=== PATIENT | male | born 1955 | race Caucasian/White ===

== ENCOUNTER 2020-11-01 15:00 | Inpatient (IN) | payer MEDICARE, MEDICAID ==
[~2020-11-01] VITALS: Ht 165.1 cm; Wt 75.6 kg
[~2020-11-01 15:00] MED LIST: BACLOFEN10 MG PO; CEFPROZIL500 MG PO; CYMBALTA30 MG PO; DICLOFENAC SODI75 MG PO; GLUCOPHAGE XR500 MG PO; HYDROCHLOROTHIA25 MG PO; LIPITOR10 MG; LO-DOSE ASPIRIN81 M1 PO; MELADOX3 MG PO; METOPROLOL SUCC50 MG PO; MOBIC15 MG PO; OXYCODONE HCL5 MG PO; PRASUGREL HCL10 MG PO; SENNA LAX8.6 MG PO; XARELTO10 MG PO
--- OUTSIDE RECORDS SUMMARY | 2020-11-01 15:02 | XMS ---
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 Randall has no Care Guidelines for this patient. Rachael VISIT COUNT (12 MO.) 1 TEVIN Andrea TOTAL 1 NOTE: Visits indicate total known visits. ED/UCC VISIT TRACKING (12 MO.) 11/01/2020 15:00 TEVIN Monge OR TYPE: Emergency COMPLAINT: - SOB, ACHING, COUGH INPATIENT VISIT TRACKING (12 MO.) No inpatient visits to display in this time frame [email or web address]
--- NOTE | 2020-11-01 20:30 | NUR ---
PT TO ROOM 116 FROM ED VIA STRETCHER. ALERT AND ORIENTED. ABLE TO TRANSFER SELF TO BED. VS WNL. PT DOES REPORT SOB WITH ACTIVITY. SpO2 88-91% ON RA. 2L/NC PLACED. AFEBRILE. EVENING SNACK AND WATER PROVIDED. PT DENIES QUESTIONS OR CONCERNS. PT ORIENTED TO ROOM AND NURSE CALL LIGHT. CALL LIGHT LEFT IN REACH.
--- NOTE | 2020-11-01 22:00 | NUR ---
PT RESTING IN BED WITH EYES CLOSED ON RIGHT SIDE. RESPIRATIONS EVEN. SpO2 94% ON 2L/NC. HR 60'S.
--- NOTE | 2020-11-01 22:13 | EKG ---
[facility] [address] [facility] [address] [place] [address] Signed Normal sinus rhythm Inferior infarct , age undetermined Abnormal ECG When compared with ECG of 15-DEC-2017 20:06, premature atrial complexes are no longer present Inferior infarct is now present ST no longer depressed in Anterior leads T wave inversion no longer evident in Anterior leads Confirmed by RICHIE CARDENAS MD ([id number]) on 11/01/2020 10:10:22 PM Electronically Signed By: RICHIE CARDENAS MD 11/01/20 2213 PATIENT NAME: GABRIELLE TRIVEDI JULIAN Electrocardiogram DATE OF : 53 PHYSICIAN: RICHIE CARDENAS MD REPORT #: [id number] REPORT IS CONFIDENTIAL AND NOT TO BE RELEASED WITHOUT AUTHORIZATION
--- NOTE | 2020-11-01 23:50 | NUR ---
IN ROOM TO ADMINISTER SCHEDULED MEDICATIONS. PT DENIES PAIN OR NAUSEA. REPORTS HAVING LOOSE BM. DENIES SOB. REPORTS HE IS FEELING MUCH IMPROVED SINCE ADMISSION. PT REPORTS HE IS RESTING WELL. EXTRA BLANKETS AND FRESH WATER PROVIDED. NO FURTHER NEEDS. CALL LIGHT IN REACH.
--- NOTE | 2020-11-02 02:59 | NUR ---
PT UP TO BR INDEPENDENTLY. 2L/NC IN PLACE. SpO2 92-95%. HR 60'S. BACK TO BED, RAMÍREZ WELL.
--- NOTE | 2020-11-02 06:43 | NUR ---
VS AND I&O COMPLETE. PT DENIES PAIN OR NAUSEA. DENIES SOB. RESPIRATIONS EVEN. SpO2 98% ON 2L/NC. OXYGEN TITRATED TO 1L. MENU AND ORDERING INSTRUCTIONS PROVIDED FOR BREAKFAST. PT DENIES FURTHER NEEDS. CALL LIGHT IN REACH.
--- NOTE | 2020-11-02 07:42 | NUR ---
REPORT RECEIVED. PT IN BED. 1L NC IN PLACE. TELE 3 ON. SPO2 AT 96% HR 56.
--- NOTE | 2020-11-02 10:00 | NUR ---
IN FOR ASSESSMENT. PT SLEEPING BUT WAKENS EASILY TO NURSE ENTERING ROOM. PT IS SSOX3. 2L NC IN PLACE. LUNGS WIHT CRACKLES IN BASES. PT DENIES SOB/PAIN. HEART SOUNDS IRREGULAR. BOWEL TONES ACTIVE. PT ATE 100% OF BREAKFAST. CALL LIGHT IN REACH.
[2020-11-02] MEDS ORDERED: ATORVASTATIN CA40 MG PO (10:08)
[2020-11-02] MEDS ORDERED: LOSARTAN POTASS25 MG PO (10:09)
[2020-11-02] MEDS ORDERED: DULOXETINE HCL60 MG PO (10:09)
[2020-11-02] MEDS ORDERED: GABAPENTIN100 MG PO (10:09)
--- NOTE | 2020-11-02 11:30 | NUR ---
Pt lives in a 1 story home with 1 step in [place]. He lives with his who has also been ill. 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 Pt complains of severe fatigue. Plans on dc to home when medically able to dc and he and will isolate together. Friends and family will assist with shopping and errands. If he requires 02 on dc he sabrina felton use [facility].
--- NOTE | 2020-11-02 13:07 | NUR ---
MED REC COMPLETE
--- NOTE | 2020-11-02 13:23 | NUR ---
ROUNDED ON PT. INSULINE ADMINSTERED. PT UP TO BATHROOM FOR BM. LUNCH AT BEDSIDE. PT DENIES NEEDS. CALL LIGHT IN REACH.
--- NOTE | 2020-11-02 14:20 | NUR ---
PT WAS IN BED. THIS MACHINE WIPER WENT IN TO GET PT'S VITAL SIGNS AND I&OS. PT REQUESTED MORE ICE WATER. CALLL LIGHT IS WITHIN REACH. NO FURTHER NEEDS AT THIS TIME.
--- NOTE | 2020-11-02 17:15 | NUR ---
roudned on pt. dinner ordered. blood sugar taken. pt denies pain or needs. call light in reach.
--- NOTE | 2020-11-02 17:43 | NUR ---
THIS AUTOMOBILE MECHANIC APPRENTICE WENT TO GET PT'S I&OS. PT WAS IN BED. PT HAD NOT URINATED SINCE ABOUT 1430. KAZ WHITMORE WAS NOTIFIED. CALL LIGHT IS WITHIN REACH. NO FURTHER NEEDS AT THIS TIME.
--- NOTE | 2020-11-02 19:34 | NUR ---
SHIFT REPORT RECEIVED FROM FROM HAIM MCCURDY. PT RESTING IN BED. NC @ 2L, CPOX 95%. CALL LIGHT IN REACH.
--- NOTE | 2020-11-02 20:44 | NUR ---
PATIENT IS AND OS AND VITALS CHARTED. PATIENT PROVIDED WITH FRESH ICE WATER, URINAL EMPTIED, ROOM TIDIED, PATIENT IS USING SPIROMETER. CALL LIGHT LEFT WITHIN REACH NO OTHER IMMEDIATE NEEDS AT THIS TIME.
--- NOTE | 2020-11-02 21:03 | NUR ---
ASSESSMENT, VS AND I&O COMPLETED. GCS 15, A&O X4. LUNGS HAVE CRACKLES IN ALL LOBES. ABD SOFT, NONTENDER, BOWEL TONES ACTIVE. HEART TONES DISTANT. CMS INTACT. IV WNL, CDI, FLUSHED WELL. SCHEDULED MEDS PROVIDED. IC EWATER PROVIDED. NO OTHER NEEDS. CALL LIGHT IN REACH.
--- NOTE | 2020-11-02 23:23 | NUR ---
PT RESTING IN BED, EYES CLOSED. SPO2 92% ON 2L NC. CALL LIGHT IN REACH.
--- NOTE | 2020-11-03 01:45 | NUR ---
PT RESTING IN BED, EYES CLOSED. SPO2 95% ON 2L NC. CALL LIGHT IN REACH.
--- NOTE | 2020-11-03 03:27 | NUR ---
PT RESTING IN BED. SPO2 92% ON 2L NC. CALL LIGHT IN REACH.
--- NOTE | 2020-11-03 05:00 | NUR ---
ASSESSMENT, VS AND I&O COMPLTED. LABS DRAWN AND SENT. LUNGS CLEAR IN UPPER LOBES, CRACKLES IN LOWER LOBES. HEART TONES REGULAR. CMS INTANCT. SPO2 91% ON 2L NC. IV WNL. ICE WATER PROVIDED. NO OTHER NEEDS. CALL LIGHT IN REACH.
--- NOTE | 2020-11-03 07:09 | NUR ---
REPORT RECEIVED FROM AKZ KUMARI. PT RESTING IN BED ON LEFT SIDE. OXYGEN SATURATIONS OF 90-92% ON 2L O2 BY NC. BED RAILS UP. CALL LIGHT WITHIN REACH. PT ALLOWED TO REST AT THIS TIME.
--- NOTE | 2020-11-03 08:21 | NUR ---
SPO2 READING 86% ON MONITOR. THIS NURSE TO BEDSIDE TO ASSESS PT. NARES PROB TRIED TO VERIFY EQUIPMENT IS ACCURATE. SPO2 W/ NO CHANGE BETWEEN EQUIPMENT. PT REPORTS HE JUST CAME BACK FROM BATHROOM. TITRATED O2 TO 4L NC. PT RECOVERED TO LOW 90'S THEN INCREASED TO 96%. TITRATED BACK DOWN TO 3L NC. SPO2 STAYING BETWEEN 89-93%. BLOOD SUGAR OBTAIN WHILE AT BEDSIDE. BLOOD SUGAR IS 191. PRIMARY NURSE UPDATED.
--- NOTE | 2020-11-03 08:50 | NUR ---
MORNING ASSESSMENT AND MEDICAITON DUE. PT RESTING IN BED WITH HEAD OF BED ELEVATED TO 30 DEGREES. PT DENIES PAIN AND NAUSEA. LUNG SOUNDS CORSE AND DEMINSHED IN LOWER LOBES, CLEAR IN UPPER LOBES. PT REPORTS ONGOING COUGH WITH YELLOW TO RAMIRES SPUTUM PRODUCTION. PRN COUGH MEDICAITON GIVEN. SHALLOW BREATHS NOTED. PT DEMONSTRATES USE OF I.S. REACHIGN 2500ML X5. NO INCREASE IN COUGH NOTED WITH I.S. USE. MILD BRADYCARDIA NOTED, STILL WITHIN PARAMATERS FOR MORNING MEDICATIONS. SEE MAR FOR MEDICAITONS GIVEN. STAND BY ASSIST UP TO CHAIR. PT DROPS TO 88% OXYGEN SATURATIONS, O2 INCREASED TO 4L O2 BY NC WITH OXGYEN SATURATIONS ABOVE 90%, 93% AT THIS TIME WHILE UP TO CHAIR. PT REPORTS ONGOING DIARRHEA WITH COVID. APROXIMATLY 3 EPISDOES OVER THE LAST DAY. PT UP TO CHAIR FOR BREAKFAST. NO ADDITIONAL REQUESTS OR COMPLAINTS. CALL LIGHT WITHIN REACH.
--- NOTE | 2020-11-03 10:00 | NUR ---
Pt sleeping. No change inplan for dc.
--- NOTE | 2020-11-03 10:15 | NUR ---
THIS RN TO ROOM TO CHECK ON PT. PT TALKING TO HIS ON THE PHONE. OXGYEN SATURATION 86-88% ON 4L O2 BY NC. IV INFUSION AND FLUSH COMPLETE. IV SALINE LOCKED, ALCOHOL CAP APPLIED. NO S/S OF PHLEBITIS NOTED. STAND BY ASSIST BACK TO BED. PT POSITIONED ON LEFT SIDE, SUPPORTED WITH PILLOWS. OXGYEN SATURATION REMAINS IN 80'S. O2 INCRASED TO 6L O2 BY NC, OXGYEN SATURATIONS CLIMB TO 90-92%. VITALS SIGNS OTHERWISE STABLE. PT REPORTS AN ADDITIONAL MEDIUM BROWN, LOOSE BOWEL MOVEMENT. THIS RN OFFERS TO UPDATE PTS , DENISSE, PT REPORTS NO UPDATE NEEDED FOR DENISSE AT THIS TIME. PT DENIES ADDITIONAL REQUESTS OR COMPLAINTS. CALL LIGHT WITHIN REACH.
--- NOTE | 2020-11-03 10:20 | NUR ---
OXGYEN SATURATION 96% ON 6L O2 BY NC. PT WEANED BACK TO 4L O2 BY NC. WITH OXYGEN SATURATIONS ABOVE 90%. PT REMAINS ON LEFT SIDE. CALL LIGHT WITHIN REACH. BED RAILS UP.
--- NOTE | 2020-11-03 12:05 | NUR ---
BLOOD SUGAR CHECK DUE. PT RESTING ON RIGHT SIDE. OXGYEN SATURATIONS REMAIN ABOVE 90% ON 4L O2 BY NC. PT DECLINES LUNCH. CRACKERS AND PEANUT BUTTER PROVIDED, INSULIN GIVEN. PT DENIES ADDITIIONAL REQUESTS OR COMPLAINTS AT THIS TIME. CALL LIGHT WITHIN REACH.
--- NOTE | 2020-11-03 14:01 | NUR ---
AFTERNOON ASSESSMENT DUE. PT RESTING ON BACK WATCHING TV. OXGYEN SATURATION 92-94% ON 4L O2 BY NC. LUNG SOUNDS UNCHANGED. OCCATIONAL PRODUCTIVE COUGH CONTINUES. PT DEMONSTRATES USE OF I.S. REACHING 2500ML X5. PT REPORTS ONGOING DIARRHEA WITH 2 EPISODES SO FAR THIS SHIFT. PT STATES "IT SEEMS TO BE A LITTLE MORE SOLID." POOR APPITITE CONTINUES. PT DENIES NEED FOR ADDITIONAL SNACKS OR LUNCH. PT DENES LOSS OF TASTE OR SMELL. STAND BY ASSIST UP TO RESTROOM. PT VOIDS 500ML CLEAR YELLOW URINE WITHOUT ISSUE. STAND BY ASSIST BACK TO BED. PT ENCOURAGED TO PRONE. PT ASSISTED INTO PRONING POSITION, REPORTS FEELING COMFROTABLE. OXGYEN SATURATIONS CLIMB TO 98% ON 4L O2 BY NC. O2 WEANED TO 2L O2 BY NC WITH OXGYEN SATURATIONS ABOVE 90%. PT DENIES ADDITIONAL REQUESTS OR COMPLAINTS. CALL LIGHT WITHIN REACH. BED RAILS UP.
--- NOTE | 2020-11-03 15:20 | NUR ---
THIS RN TO ROOM TO CHECK ON PT. PT RESTING ON LEFT SIDE WITH EYES CLOSED, OXGYEN SATURATION 94% ON 2L O2 BY NC. PT ALLOWED TO REST. CALL LIGHT WITHIN REACH. BED RAILS UP.
--- NOTE | 2020-11-03 16:28 | NUR ---
PT HERE FOR COVID RELATED PENUMONIA. PT UP TO CHAIR AND TO RESTROOM WITH STAND BY ASSIST. PT STEADY ON FEET BUT OXGYEN SATURATIONS DROP WITH ACTIVITY. PT ADVANCED TO 4L O2 BY NC WITH ACTIVITY AND WHILE UP TO CHAIR THIS SHIFT, WEANED TO 2L O2 BY NC WITH PRONING, TO MAINTAIN OXYGEN SATURATIONS ABOVE 90%. I.S. USE ENSURED, PT REACHING 2500ML. MINIMAL APPITITE FOR REGULAR DIET. BLOOD SUGAR CHECKS PERFORMED WITH SLINDING SCALE INSULIN. PT PARTICIPATING IN PRONING PROTOCOLS. CONTINIOUS PULSE OX IN PLACE TO MONITOR OXYGEN SAUTRATIONS. PT VOIDING QUANTITY SUFFICIENT. PT USES CALL LIGHT APPROPRIATLY.
--- NOTE | 2020-11-03 16:56 | NUR ---
BLOOD SUGAR DUE. PT RESTING ON RIGHT SIDE, OXGYEN SATURATIONS OF 89-92% ON 2L O2 BY NC. BLOOD SUGAR TAKEN, INSULIN GIVEN. PT ENCOURAGED TO GET UP TO CHAIR FOR DINNER, PT REFUSES STATING HE WANTS TO STAY IN BED. PT EATING DINNER IN BED WITH HEAD OF BED ELEVATED TO 35 DEGREES. OXGYEN INCREASED TO 4L O2 BY NC WHILE EATING AND WITH ACTIVITY OF SITTING UP. PT DENIES ADDITIONAL REQUESTS OR COMPLAINTS. CALL LIGHT WITHIN REACH. BED RAILS UP.
--- NOTE | 2020-11-03 18:02 | NUR ---
THIS RN TO ROOM TO CHECK ON PT. PT RESTING IN BED TALKING ON PHONE, HEAD OF BED ELEVATED TO 44 DEGREES. PT DENIES PAIN AND NAUSEA. OXGYEN SATURATION 90% ON 6L O2 BY NC WHILE SITTING UP. PT DENIES ADDITIONAL REQUESTS OR COMPLAINTS. REMAINS ON PHONE. CALL LIGHT WITHIN REACH. BED RAILS UP.
--- NOTE | 2020-11-03 19:39 | NUR ---
SHIFT REPORT RECEIVED FROM MAJO MCCURDY. PT CPOX 90% ON 2L NC. NO NEEDS AT THIS TIME. CALL LIGHT IN REACH.
--- NOTE | 2020-11-03 21:15 | NUR ---
IN TO GET VITALS, ICE WATER FILLED, URINAL EMPTIED, NO FURTHER NEEDS AT THIS TIME
--- NOTE | 2020-11-03 21:24 | NUR ---
ASSESSMENT COMPLETED. LUNGS CLEAR IN UPPER LOBES, CRACKLES IN LOWER LOBES. NC @ 2L, CPOX 94%. IV WNL, CDI, FLUSHED WELL. GENERALIZED PAIN 2/10, PRN PAIN MED PROVIDED. SCHEDULED MEDS PROVIDED. NO OTHER NEEDS. CALL LIGHT IN REACH.
--- NOTE | 2020-11-04 | NUR ---
PT RESTING IN BED ON LEFT SIDE. SPO2 98% ON 2L NC. CALL LIGHT IN REACH.
--- NOTE | 2020-11-04 02:00 | NUR ---
PT RESTING IN BED. SPO2 91% ON 2L NC. CALL LIGHT IN REACH.
--- NOTE | 2020-11-04 04:00 | NUR ---
PT RESTING IN BED. SPO2 92% ON 2L NC. CALL LIGHT IN REACH.
--- NOTE | 2020-11-04 05:20 | NUR ---
ASSESSMENT, VS AND I&O COMPLETED. LUNGS CLEAR IN UPPER LOBES WITH CRACKLES IN LOWER LOBES. IV DRESSING CHANGED. SPO2 93% ON 2L NC. NO OTHER NEEDS. CALL LIGHT IN REACH.
--- NOTE | 2020-11-04 06:07 | NUR ---
H&P and face sheet faxed to [facility] for advance notice pt may dc over the weekend and could potentially need 02 from their distance education teacheron call pharmacy technician.
--- NOTE | 2020-11-04 07:31 | NUR ---
REPORT RECEIVED FROM KAZ KUMARI. PT RESTING WITH EYES CLOSED ON LEFT SIDE. OXGYEN SATURATIONS OF 90% ON 2L O2 BY NC. PT ALLOWED TO REST. BED RAILS UP. CALL LIGHT WITHIN REACH.
--- NOTE | 2020-11-04 08:49 | NUR ---
MORNING ASSESSMENT AND MEDICATION DUE. PT RESTING IN BED ON BACK. OXGYEN SATURATION NOTED TO BE 84-86% ON 2L O2 BY NC. O2 INCREASED TO 6L O2 BY NC WITH LITTLE IMPROVMENT. HIGH FLOW NASAL CANULA PLACED AT 10L O2 WITH OXGYEN SATURATIONS CLIMBING TO 91%. LUNG SOUNDS CLEAR IN UPPER LOBES, CRACKELS NOTED IN BASES, FEWER CRACKELS THIS MORNING THAN YESTERDAY. PT DEMONSTRATES USE OF I.S. REACHING 2500ML/X5. PT DENIES PAIN AND NAUSEA. PT REPORTS STOOLS ARE "BECOMING MORE SOLID." NO BOWEL MOVEMENT YET THIS MORNING. STAND BY ASSIST UP TO CHAIR. PT EATING BREAKFAST. WEANED DOWN TO 8L O2 BY HIGH FLOW HUMIDIFIDED NC. PT DENIES ADDITIONAL REQUESTS OR COMPLAINTS. CALL LIGHT WIHTIN REACH. BED
--- NOTE | 2020-11-04 09:30 | NUR ---
PUMP ALARMING, INFUSION AND FLUSH COMPLETE. IV ASSESSED, WNL, NO S/S OF PHELBITIS NOTED. IV FLUSHED AND SALINE LOCKED PERPROTOCOL, ALCOHOL CAP APPLIED. STAND BY ASSIST BACK TO BED. PT IN PRONE POSITION PT WEANED TO 4L O2 BY NC WHILE PRONING WITH OXGYEN SATURATIONS ABOVE 90%. PT DENIES PAIN AND NAUSEA. NO ADDITIONAL REQUESTS OR COMPLAINTS. CALL LIGHT WITHIN REACH.
--- NOTE | 2020-11-04 10:40 | NUR ---
PT CALL LIGHT ON. PT REPORTS HE NEEDS ASSISTANCE WITH HIS OXYGEN TUBING AND USING THE RESTROOM. THIS RN TO ROOM. EXTENTION PLACED ON OXGYEN TUBING. PT NOTED TO BE 86% ON 6L O2 BY HIGH FLOW NC WHILE UP TO CHAIR. OXGYEN INCREASED TO 12L O2 BY NC FOR ACTIVITY WITH OXGYEN SATURATIONS MAINTAINING ABOVE 90%. PT DEMONSTRATES USE OF I.S. REACHING 2500X 3 WHICH INCREASES OXGYEN SATURATIONS UP TO 97% TEMPORARILLY. STAND BY ASSIST UP TO RESTROOM. PT VOIDS AND HAS BOWEL MOVEMENT, NOTES DIARRHEA CONTINUES. STAND BY ASSIST BACK TO BED. PT LYING ON LEFT SIDE. OXGYEN WEANED TO 4L O2 BY NC TO MAINTAIN OXGYEN SATURATIONS ABOVE 90%. LUNCH ORDER PLACED. NO ADDITIONAL REQEUSTS OR COMPLAINTS. CALL LIGHT WITHIN REACH.
--- NOTE | 2020-11-04 11:59 | NUR ---
LUNCH DELIVERED TO PT. PT RESTING ON LEFT SIDE, AWAKENS TO VOICE. BLOOD SUGAR TAKEN, SLIDING SCALE INSULIN GIVEN. PT ENCOARUGED TO GET UP TO CHAIR FOR LUNCH. PT DECLINES AND STATES HE WANTS TO STAY IN BED. BENIFITES OF TIME UP TO CHAIR DISCUSSED WITH PT. PT VERBALIZES UNDERSTANDING AND CONTINUES TO STATE HE WILL REMAIN IN BED. OXGYEN SATURATIONS 94-96% ON 4L O2 BY NC. PT WEANED TO 3L O2 BY NC TO MAINTAIN OXGYEN SATURATION S88-92%. PT EATING LUNCH. NO ADDITIONAL REQUESTS OR COMPLAINTS. CALL LIGHT WITHIN REACH.
--- NOTE | 2020-11-04 13:58 | NUR ---
AFTERNOON ASSESSMENT DUE. PT CALL LIGHT ON. PT STATES HE WOULD LIKE TO GET UP TO THE CHAIR AND TO WALK AROUND ROOM A LITTLE BIT. PT INDEPENDANT UP TO CHAIR. PT INCREASES HIS OWN OXGYEN TO 10L O2 BY NC WITH OXGYEN SATURATIONS 86-88%. THIS RN TO ROOM, OXGYEN INCREASED TO 12L O2 BY NC WITH STATURATIONS 88-93%. LUNGS. PT REPORTS 6/10 HEADACHE. TYELNOL GIVEN. LUNGS SOUNDS CLEAR THROUGHOUT ALTHOUGH DEMINISHED IN BASES. PT DEMONSTRATES USE OF I.S. REACHING 2500 X3. PT REPORTS APPITITE IS IMPROVING, WAS ABLE TO EAT 100% OF LUNCH AND IS EAGER TO ORDER DININER. DINNER ORDER PLACED. PT UP TO AMBULATE IN ROOM. OXGYEN SATURATIONS 88-92% ON 12L O2 BY NC. PT REPORTS IT "FEELS GOOD" TO WALK AND "STRETCH MY MUSCLES." PT UP TO SHOWER. IV COVERED. PT INDEPENDANT IN SHOWER, SHOWER CHAIR USED. PT DEMONSTRATES USE OF CALL LIGHT. CALL LIGHT WITHIN REACH.
--- NOTE | 2020-11-04 15:03 | NUR ---
PT FINISHED WITH SHOWER. CALL LIGHT ON. PT REPORTS "I FELT PRETTY GOOD IN THERE, I DIDN'T FEEL WINDED OR ANYTHING." PT UP TO CHAIR. CPOX IN PLACE, OXGYEN SATURATIONS 95-99% ON 14L O2 BY NC. PT REPORTS HE HAS HAD ISSUES WITH POOR CIRCULATION IN THE PAST AND THINGS THAT AFTER THE HOT SHOWER HIS CIRCLATION HAS IMPROVED. PT WEAND TO 4L O2 BY NC WHILE UP TO CHAIR. OXGYEN SATURATIONS MAINTAINING ABOVE 90% ON 4L O2 BY NC WHILE UP TO CHAIR. WARM BLANKET PROVIDED FOR PT. PT REPORTS HEADACHE HAS IMPROVED, NOW 03/30. NO ADDITIONAL REQUESTS OR COMPLAINTS. CALL LIGHT WITHIN REACH.
--- NOTE | 2020-11-04 16:07 | NUR ---
THIS RN TO ROOM TO CHECK ON PT. PT UP IN ROOM AND TO USE RESTROOM. OXYGEN SATURATIONS 90-96% ON 4L O2 BY NC. PT WEANED TO 2L O2 BY NC AND IS MAINTAINING OXYGEN SATURATIONS ABOVE 90%. PT REPORTS HEADACHE HAS RESOLVED. NO ADDITIONAL REQUESTS OR COMPLATINS. CALL LIGHT WITHIN REACH.
--- NOTE | 2020-11-04 16:30 | NUR ---
PT HERE FOR COVID RELATED PNEUMONIA. PT UP IN ROOM INDEPENDANTLY. INCREASED APPITITE THIS SHIFT FOR CONSISTANT CARB DIET. BLOOD SUGARS ELEVATED WITH CHECKS DURING MEAL TIMES, SLIDING SCALE INSULIN GIVEN. INCREASED OXGYEN NEEDS NOTED THIS MORNING, IMPROVED WITH WARMING HANDS/SHOWER AND IMPROVED CIRCULATION. PT WEANED TO 2L O2 BY NC THIS AFTERNOON AND IS MAINTAINING OXYGEN SATURATIONS ABOVE 90%. LUNG SOUNDS CLEAR. SHOWER THIS SHIFT, PT REPORTS GOOD ENERGY DURING SHOWER AND WAS ABLE TO TOLERATE ACTIVITY WELL. PT PARTICIPATING IN PRONING PROTOCOLS. I.S. USE ENSURED, PT REACHING 2500ML. PT VOIDING QUANITTY SUFFICIENT. PO INTAKE ENCORUAGED. PT USES CALL LIGHT AND MAKES NEEDS KNOWN.
--- NOTE | 2020-11-04 17:30 | NUR ---
DINNER DELIVERED TO PT. INSULIN GIVEN PER SLIDING SCALE. PT LYING ON BACK IN BED AND OXYGEN SATURATIONS NOTED TO BE 84-88%. OXGYEN INCREASED TO 4L O2 BY NC, PT ENCOURAGED TO LYE ON SIDE RATHER THAN BACK. PT ROLLS TO LEFT SIDE. OXGYEN SATURATIOSN INCREASE TO 90-93%. PT DENIES ADDITIONAL REQUESTS OR COMPLAINTS. CALL LIGHT WITHIN REACH. BED RAILS UP.
--- NOTE | 2020-11-04 18:41 | NUR ---
PTS OXYGEN SATURATIONS NOTED TO BED 82-88%. THIS RN TO ROOM. PT UP TO CHAIR, REPORTS HE TURNED HIS OXYGEN UP TO 6L O2 BY NC. OXGYEN INCRASED TO 10L. OXGYEN SATURATION COMPAIRED WITH EAR LOBE PROBE AND NOTED TO BE 88-94%. WARM BLANKET PROVIDED FOR PTS HAND. PT DENIES FEELINGS OF SHORTNESS OF BREATH. RR = 20-24 BPM. PT REMAINS UP TO CHAIR EATING DINNER. VITAL SIGNS OTHERWISE STABLE. PT REMAINS ON 10L O2 BY NC AT THIS TIME WITH OXGYEN SATURATIONS 88-92%. CALL KERLINE DELONG.
--- NOTE | 2020-11-04 20:05 | NUR ---
PATIENT RESTING QUIETLY ON HIS LEFT SIDE ON 10L/NC HIGH FLOW WITH SATS OF 95%. PATIENT DENIES THE NEEDS FOR ANY CARES AT THIS TIME. RESPIRATIONS ARE REGULAR AND EVEN AND CALL LIGHT IS IN REACH.
--- NOTE | 2020-11-04 22:10 | NUR ---
PATIENT 96% O2 SAT ON 10L/NC. PATIENT RESTING IN BED WITH NO RESPITORY DISTRESS. EVENING MEDS GIVEN WITH COUGH SYRUP, TESSALON LEANDRO, AND TYLENOL FOR RIGHT KNEE PAIN FROM AN OLD KNEE SURGERY. PATIENT VOIDED 300MLS AND BOTH WATER GLASSES ARE FULL OF NEW WATER. PATIENT ASSESSMENT COMPLETE AND CALL LIGHT IS WITHIN REACH. NO OTHER CARE NEEDS AT THIS TIME.
--- NOTE | 2020-11-04 23:55 | NUR ---
PATIENT RESTING QIETLY ON HIS LEFT SIDE, RESPIRATIONS REGULAR AND EVEN AND EYES CLOSED, CALL LIGHT IS IN REACH. PATIENT'S 02 SATS 94% ON 10L/NC HIGH FLOW.
--- NOTE | 2020-11-05 01:09 | NUR ---
PATIENT RESTING QUIETLY ON HIS RIGHT SIDE, RESPIRATIONS ARE REGULAR AND EVEN, EYES ARE CLOSED, AND PATIENT REMAINS ON 10L/NC WITH 02 SAT AT 95% AND HR=61 PER TELE. CALL LIGHT IS IN REACH.
--- NOTE | 2020-11-05 02:34 | NUR ---
PATIENT HAS TURNED ON TO HIS BACK, O2 SATS ARE 92% ON 10L/NC HIGH FLOW WITH HR=52 ON TELE. PATIENT HAS NO CURRENT CARE NEEDS AND CALL LIGHT IS IN REACH.
--- NOTE | 2020-11-05 03:45 | NUR ---
PATIENT HAS TURNED BACK TO HIS LEFT SIDE AND O2 SATS ARE 95% OB 10L/NC HIGH FLOW WITH A HR=50. PATIENT'S RESPIRATIONS ARE REGULAR AND EVEN, HIS EYES ARE CLOSED, AND HIS CALL LIGHT IS IN REACH. PATIENT HAS NO OTHER CARE NEEDS NOTED AT THIS TIME.
--- NOTE | 2020-11-05 05:35 | NUR ---
PATIENT INFORMED THIS RN THAT HE WAS ABLE TO GET SOME SLEEP LAST NIGHT. PATIENT HAS REMAINED ON 10L/NC MOST OF THE NIGHT HIS O2 SATS WOULD FLUCTUATE FROM 87%-97% DEPENDING ON WHAT POSITION HE IS LAYING IN. PATIENT IS VOIDING QUANTITY SUFFICIENT URINE AND REMAINS INDEPENDENT IN THE ROOM. PATIENT JUST NOW TIRATED DOWN TO 8L/NC WITH AN O2 SAT OF 92%. PATIENT HAS NO OTHER NEEDS AT THIS TIME AND WANTS TO GET SOME MORE SLEEP. CALL LIGHT IS IN REACH.
--- NOTE | 2020-11-05 07:39 | NUR ---
this rn received report from gary adrian. pt appears to be resting at this time and is on cpox.
--- NOTE | 2020-11-05 08:10 | NUR ---
this rn in pts room to give pt his morning meds. pt states that he is feeling okay this am and is having no concerns this am, pt denies sob or any distress. pt sating 87% on 8l while laying on his back. when this rn stepped out of pts room pt desated to 79% on 8l, colleen rt in pts room to turn up pts o2 to 10l, pt sating 89-92% on 10l. pt did not state that he had any distress or sob. this rn did provide pt with 650 mg of tylenol for chronic pain
--- NOTE | 2020-11-05 12:30 | NUR ---
this rn in pts room to give pt his afternoon meds. pt states that he is doing well and reports that he has had no sob so far today.
--- NOTE | 2020-11-05 14:00 | NUR ---
this rn to cek on pt due to low sats- 80's- % pt up to the restroom and getting back to bed at this time. pt titrating his own oxygen, pt reports that previous nurses taught him to titrate his oxygen when getting up to restroom- pt titrated up to 10l when moving and then back to 8l for back to bed. pt denies sob at this time
--- NOTE | 2020-11-05 14:30 | NUR ---
pts sats still low at this time (mid 80's), lucian rajan to ask pt for this rn to side prone due to pt supine in bed with head elevated 30 degrees.
--- NOTE | 2020-11-05 17:30 | NUR ---
this rn in pts room to get pts blood sugar. pt reports that he was able to prone on his stomach for an hour this afternoon. pt sitting up at this time. this rn noted that pts sats were 92-95% on 8l prior to waking pt up from prone position, this rn noted pts sats were mid to upper 80's when sitting up in bed.
--- NOTE | 2020-11-05 18:00 | NUR ---
this rn in pts room to give pt his insulin and dinner. pt reports that he did have bm this afternoon. pt denies any sob when he gets up and moves.
--- NOTE | 2020-11-05 19:30 | NUR ---
CALLED THE FLOOR TO LET THIS RN KNOW PATIENT NEEDS TO GET AN ARTERIAL BLOOD GAS AND A CHEST CT TO R/O PE. [facility] WAS CALLED AND IS HERE TO PERFORM BLOOD GAS. RADIOLOGY WAS CALLED AND THEY WILL BE HERE SHORTLY TO TAKE PATIENT TO CT.
--- NOTE | 2020-11-05 20:09 | NUR ---
VS COMPLETE AND PATIENT HEADED TO CT WITH RADIOLOGY. [facility] INFORMED PATIENT IN TRANSPORT. PATIENT ON 10L/NC IGH FLOW AT THIS TIME. MASK ON PATIENT FOR COVID PRECAUTIONS OVER HIS NC.
--- NOTE | 2020-11-05 20:30 | NUR ---
PATIET IS BACK FROM CT AND BACK IN BEED ON 10L/NC HIGH FLOW. O2 SATS 92%. PATIENT'S PULSE OX TELE BATTERY CHANGED. PATIENT IN NO DISTRESS. PATIENT HAS NO CURENT NEEDS AT THIS TIME. THIS RN WILL RETURN WITH EVENING MEDS. CALL LIGHT IS IN REACH AND ICE WATER WAS REFILLED.
--- NOTE | 2020-11-05 21:30 | NUR ---
PATIENT GIVEN HIS PM MEDICATIONS ALONG WITH COUGH SYRUP, A TESSALON LEANDRO, AND TYLENOL FOR MARVIN/RT KNEE PAIN 07/28. PATIENT REMAINS ON 10L/NC HIGH FLOW WITH A O2 SAT OF 92%. PATIENT'S IV FLUSHES WELL AND PATIENT ASKED BY THIS RN TO CALL SOON HE VOIDS HE IS DUE. PATIENT HAS NO OTHER CARE NEEDS AT THIS TIME. CALL LIGHT IS IN REACH.
--- NOTE | 2020-11-05 22:38 | NUR ---
PATIENT RESTING QUIETLY IN BED WATCHING TV. RESPIRATIONS ARE REGULAR AND EVEN AND O2 SAT IS 95% ON 10L/NC WITH HR=56 ON TELE. PATIENT HAS NO CARE NEEDS AT THIS TIME. CALL LIGHT IS IN REACH.
--- NOTE | 2020-11-05 23:30 | NUR ---
IN TO EMPTY URINAL FOR PT, NO FURTHER NEEDS AT THIS TIME
--- NOTE | 2020-11-06 00:38 | NUR ---
PATIENT HAS BEEN RESTING AND SLEEPING A LITTE PER PATIENT. O2 TITRATED DOWN TO 8L/NC HIGH FLOW FROM 10/L. PATIENT HAS NO C/O PAIN AT THIS TIME. PATIENT HAS NO OTHER CARE NEEDS AT THIS TIME. CALL LIGHT IS IN REACH.
--- NOTE | 2020-11-06 01:59 | NUR ---
PATIENT CONTINUES TO REST QUIETLY, CURRENTLY ON HIS RIGHT SIDE, EYES CLOSED, RESPIRATIONS REGULAR AND EVEN, 02 SAT 93% ON 8L/NC HIGH FLOW, AND CALL LIGHT IS IN REACH.
--- NOTE | 2020-11-06 02:45 | NUR ---
PATIENT TURNED TO HIS LEFT SIDE AND 02 SATS DROPPED TO 80%. PATIENT TURNED UP TO 10L/NC HIGH FLOW WITHOUT MUCH IMPROVEMENT, TITRATED ON UP TO 15L/NC HIGH FLOW AND SATS 91% WITH A HR=54 ON TELE. DISCUSSED THIS WITH RT CONY AND WILL LEAVE PATIENT ON 15L/NC HIGH FLOW UNTIL SHIFT CHANGE. PATIENT'S CALL LIGHT IS IN HIS REACH.
--- NOTE | 2020-11-06 03:40 | NUR ---
Answered pt call light, assisted pt to br. 1pa, pt back in bed. call light within reach, no further asssitance needed at this time.
--- NOTE | 2020-11-06 04:40 | NUR ---
PATIENT RESTING QUIETLY ON HIS LEFT SIDE, RESPIRATIONS ARE REGULAR AND EVEN, EYES ARE CLOSED, 02 SATS IS 92% ON 15L/NC WITH HR=52 PER TELE, AND CALL LIGHT IS IN REACH.
--- NOTE | 2020-11-06 05:59 | NUR ---
PATIENT'S VS REMAIN STABLE EXCEPT FOR PATIENT IS NOW ON 15L/NC FROM STARTING AT 10L/ NC AT SHIFT CHANGE. WAS ABLE TO TITRATE DOWN TO 8L/NC FOR A COUPLE HOURS DURING THE NIGHT, BUT PATIENT WAS NOT ABLE TO MAINTAIN HIS SATS THERE. CURRENTLY O2 SAT=92% ON THE 15L/NC. PATIENT HAVING 7/10 MARVIN/RT KNEE/ RT SHOULDER PAIN AND WAS JUST MEDICATED WITH TLENOL FOR THE SECOND TIME THIS SHIFT. PATIENT'S ICE WATER WAS REFILLED AND AM ASSESSMENT IS COMPLETE. PATIENT HAS NO FURTHER CARE NEEDS AT THIS TIME AND HIS CALL LIGHT IS WITHIN HIS REACH.
--- NOTE | 2020-11-06 07:13 | NUR ---
PATIENT REPORT GIVEN TO KAZ ADAME.
--- NOTE | 2020-11-06 07:38 | NUR ---
this rn recieved report from gary adrian. pt appears to be resting at this time with respirtaiotns noted and on tele cpox
--- NOTE | 2020-11-06 08:15 | NUR ---
THIS RN IN PTS ROOM TO CHECK ON PT AND GIVE PT HIS MORNING MEDS. PT STATES THAT HE IS DOING GOOD BUT STATES THAT OCCASIONALLY WHEN HIS O2 DIPS HE FEELS SHORT OF BREATH. THIS RN DISCUSSED WITH PT ABOUT THE IMPORTANCE OF PRONING TODAY DUE TO THE INCREASE IN DEMAND OF OXYGEN. THIS RN DISUCSSED WITH PT THAT HE WAS BOARDERLINE OF NEEDING TO GO TO A DIFFERENT OXYGEN DIVIERY MACHINE, PT STATED UNDERSTANDING AND STATES HE WILL EAT BREAKFAST AND THEN PRONE TODAY.
--- NOTE | 2020-11-06 10:45 | NUR ---
THIS RN TO CHECK ON PT AND ATTEMPT TO GET LUNCH ORDER. PT APPEARS TO BE RESTING COMFORTABLY WITH EVEN AND DEEP RESPITATIONS NOTED. PT IS PRONING ON RIGHT SIDE AND APPEARS TO BE COMFORTABLY. PTS O2 SATS HAVE MAINTAINED GREATER THAN 90% SINCE HE STARTED PRONING AFTER HIS BREAKFAST.
--- NOTE | 2020-11-06 12:25 | NUR ---
THIS RN IN PTS ROOM TO GET PTS BLOOD SUGAR. PTS OXYGEN HAS BEEN GREATER THAN 90%. PT STATES THAT HE TOLERATED DIRECT PRONING ON HIS BELLY FOR 20MINS. PT THEN HAS BEEN SIDE LYING PRONING FOR THE REST OF THE MORNING.
--- NOTE | 2020-11-06 14:05 | NUR ---
THIS RN NOTED PTS SATS IN THE LOW 80'S ON 12L HIGH MALU NC. THIS RN TO CHECK ON PT. PT FLAT ON HIS BACK WITH DEEP RESPIRATIONS NOTED, THIS RN INSTRUCTED PT TO PRONE, PT STATED UNDERSTANDING AND PLACED HIMSELF IN A SIDELYING PRONE POSITION
--- NOTE | 2020-11-06 17:15 | NUR ---
THIS RN IN PTS ROOM TO CHECK ON PT AND GET BLOOD SUGAR. THIS RN TO PROVIDE PT WITH TYLONWL AND TESSALON PER PT REQUEST.
--- NOTE | 2020-11-06 17:16 | NUR ---
THIS RN IN PTS ROOM TO DO PTS BLOOD SUGAR. PT STATES HE WANTS TO TRY HIS O2 LOWER DUE TO SOME DISCOMFORT IN NOSE. THIS RN TURNED PT DOWN TO 10L PER REQUEST FROM 12L. PT DID DESAT TO 85-87% BUT PT WAS ALSO SUPINE AND HOB AT 30 DEGREES. THIS RN WILL MONITOR BUT PT IS EATING DINNER AND HAS HISTORY OF DESATING WHEN SITITNG UP TO MEALS
--- NOTE | 2020-11-06 19:30 | NUR ---
PATIENT RESTING QUIETLY ON 10L/NC HIGH WITH SAT OF 91% ON HIS RIGHT SIDE. CALL LIGHT IS IN REACH. PATIENT IS WATCHING TV AND HAS NO CURRENT CARE NEEDS. REPORT GIVEN TO THIS RN FROM KAZ ADAME.
--- NOTE | 2020-11-06 20:00 | NUR ---
PM ASSESSMENT COMPLETE. THIS RN TRIED TO TITRATE 02 FROM 12L/NC TO 10L/NC WITHOUT SUCCESS. PATIENT REMAINS ON 12L/NC HIGH FLOW WOTH O2 SAT OF 90%. PATIENT LAYING IN HIS BACK AT THIS TIME IN LOW FOWLERS POSITION. PATIENT INFORMED THIS RN HIS MARVIN WAS BETTER AFTER THE TYLENOL. ICE WATER REFILLED AND CALL LIGHT IS IN REACH. PATIENT HAS NO OTHER CARE NEEDS AT THIS TIME.
--- NOTE | 2020-11-06 23:16 | NUR ---
PATIENT RESTING QUIETLY ON HIS LEFT SIDE, RESPIRATIONS SHALLOW AND EVEN, O2 SAT=91% ON 15L/NC HIGH FLOW WITH HR=54 PER TELE/SPO2 MONITOR. PATIENT'S EYES ARE CLOSED, AND PATIENT'S CALL LIGHT IS WITHIN REACH.
--- NOTE | 2020-11-06 23:45 | NUR ---
PATIENT UP TO THE BATHROOM AND BACK TO BED INDEPENDENTLY, BUT O2 SAT DROPPED TO 78% ON 15L/NC HIGH FLOW SO 15L/OXY MASK PLACED ON PATIENT IN ADDITION TO NC UNTIL SATS BACK INTO THE 90'S. PATIENT WANTS TO GIVE HIS NOSE A BREAK AND REMAINS ON 15L+/OXYMASK AT THIS TIME WITH O2 SAT 93% AT THIS TIME. CONY RT INFORMED OF DEVICE CHANGE. CALL LIGHT IS IN PATIENT'S REACH.
--- NOTE | 2020-11-07 01:31 | NUR ---
PATIENT RESTING QUIETLY ON HIS LEFT SIDE, EYES ARE CLOSED, RESPIRATIONS SHALLOW AND EVEN, 02 SAT=92% ON 15L+/OXYMASK. PATIENT HS NO CURRENT CARE NEEDS. PATIENT'S CALL LIGHT IS IN REACH.
--- NOTE | 2020-11-07 03:30 | NUR ---
PATIENT RESTING ON HIS RIGHT SIDE, EYES CLOSED, RESPIRATIONS ARE SHALLOW AND EVEN, O2 SAT=90% ON 15L+/OXYMASK WITH HR=60. PATIENT HAS NO CURRENT CARE NEEDS AND HIS CALL LIGHT IS IN REACH.
--- NOTE | 2020-11-07 05:25 | NUR ---
PATIENT 1PSBA UP TO THE BATHROOM AND BACK TO BED. PATIENT SWITHCHED BACK FOR 15+L/OXYMASK TO 15L/NC HIGH FLOW. PATIENT USED BOTH O2 SOURCES WHILE GETTING TO AND BACK FROM THE BATHROOM. 02 SAT NOW 90% ON 15L/NC HIGH FLOW ALONE. PATIENT GIVEN PO TYLENOL FOR 8/10 MARVIN, RIGHT SHOULDER, RIGHT HIP, AND RIGHT KNEE PAIN, WELL A TESSALON LEANDRO FOR COUGH. ICE WATER REFILLED. PATIENT HAD NO OTHER CARE NEEDS AT THIS TIME AND CALL LIGHT IS IN REACH.
--- NOTE | 2020-11-07 07:19 | NUR ---
PATIENT RESTING QUIETLY IN BED WITH O2 SAT AT 90% ON 15L/NC HIGH FLOW. SHIFT REPORT GIVEN TO KAZ FAUST.
--- NOTE | 2020-11-07 07:38 | NUR ---
REPORT RECIEVED FROM KAZ GÓMEZ.
--- NOTE | 2020-11-07 08:07 | NUR ---
MORNING ASSESSMENT DONE. PATIENT RATES RIGHT HIP PAIN 6/10 AND INDICATES THAT IT IS "OUT" AND NEEDS TO SEE A CHIROPRACTOR. BLOOD GLUCOSE IS 119 AND REQUIRES NO INSULIN COVERAGE. PATIENT IS ON 15L HIGH FLOW, WAS PRONING ON SIDE, BREAKFAST ARRIVED AND PATIENT SAT UP, SATS DECREASED TO 82% PATIENT IS ATTEMPTING TO EAT BREAKFAST WHILE LYING ON SIDE. PATIENT DENIES OTHER NEEDS AT THIS TIME.
--- NOTE | 2020-11-07 09:36 | NUR ---
PATIENT RESTING IN BED ON LEFT SIDE. VITALS AND I&OS CHARTED. FRESH ICE WATER PROVIDED. ROOM TIDIED, GARBAGE EMPTIED. CALLLIGHT IN EASY REACH,NO OTHER NEEDS AT THIS TIME
--- NOTE | 2020-11-07 09:54 | NUR ---
PATIENT IS IRRITATED BY THE HIGH FLOW CANNULA, REDUCED TO 5L NC AND 15L OXYMASK. PATIENT IS LYING ON LEFT SIDE AT THIS TIME.
--- NOTE | 2020-11-07 12:18 | NUR ---
patient given 5units of novolog per sliding scale for blood glucose of 271.
--- NOTE | 2020-11-07 13:33 | NUR ---
patient up to bathroom to void, did not wait for staff to be in room and took off oxymask, sats as low as 73% patient currently on 5L high flow nc plus 15L oxymask.
--- NOTE | 2020-11-07 13:46 | NUR ---
PATIENT UP IN ROOM BY HIMSELF, STATES HE TURNED O2 UP ON NASAL CANULA AND WENT TO BR. KAZ FAUST IN ROOM. PATIENT BACK TO BED AND NOW ON NC/OXYMASK FOR RECOVERY. VITALS AND I&OS CHARTED CALL LIGHT IN REACH.
--- NOTE | 2020-11-07 14:32 | NUR ---
PATIENT IS RESTING IN BED.
--- NOTE | 2020-11-07 15:39 | NUR ---
No change in plan for dc.
--- NOTE | 2020-11-07 15:47 | NUR ---
PATIENT IS SLEEPING, LAYING ON LEFT SIDE, SATS ARE 94% 5L VAPOTHERM/15L OXYMASK
--- NOTE | 2020-11-07 16:24 | NUR ---
PATIENT IS PRONING ON LEFT SIDE, DENIES OTHER NEEDS, SATS UP TO 92%
--- NOTE | 2020-11-07 17:21 | NUR ---
PATIENT SITTING UP TO EAT, CHANGED TO NC, 15L HIGH FLOW OXYGEN. SATS ARE MARGINAL WHILE PATIENT IS EATING.
--- NOTE | 2020-11-07 17:46 | NUR ---
PATIENT SWITCHED TO 15L HIGH FLOW NC FOR DINNER.
--- NOTE | 2020-11-07 17:56 | NUR ---
PATIENT O2 SATS ARE MARGINAL SITTING UP AFTER DINNER. PATIENT REQUESTED TO PRONE AND DID SO. RT IN TO CHANGE PATIENT TO VAPOTHERM.
--- NOTE | 2020-11-07 19:43 | NUR ---
REPORT RECEIVED FROM DAY SHIFT RN. PT LYING IN BED ALERT AND ORIENTED. DENIES NEEDS AT THIS TIME. CALL LIGHT IN REACH.
--- NOTE | 2020-11-07 20:02 | NUR ---
@1955 PT NEEDED THE URINAL, SATS WERE 84, THIS RN INTO ROOM PUT SR DOWN, BACK TO BED, SATS DECREASED TO 71, PT BACK TO HIS LEFT SIDE, PT SLOWLY RECOVERED, ELA SATS ARE 95
--- NOTE | 2020-11-07 22:00 | NUR ---
EVENING ASSESSMENT COMPLETE. SCHEDULED MEDS ADMINISTERED PER EMAR. PRN FOR RIGHT HIP/SHOULDER PAIN AND COUGH ADMINISTERED PER EMAR. PT DENIES SOB. VAPOTHERM AT 40L IN PLACE. PT NOTED TO DESAT WITH ACTIVITY AND RECOVERS AFTER REST. PT REPORTS PRODUCTIVE COUGH WITH THICK GREEN/BROWN SPUTUM. PT PRONING AND SIDE LAYING. VS AND I&O COMPLETE. FRESH ICE WATER PROVIDED. PT DENIES QUESTIONS OR CONCERNS. CALL LIGHT IN REACH.
--- NOTE | 2020-11-08 00:36 | NUR ---
PT RESTING ON LEFT SIDE. RESPIRATIONS EVEN. SpO2 93% ON VAPOTHERM. NO APPARENT DISTRESS.
--- NOTE | 2020-11-08 02:54 | NUR ---
PT LYING ON LEFT SIDE. RESPIRATIONS EVEN. SpO2 89-93%. REQUESTING PRN TYLENOL. WILL ADMINISTER WHEN AVAILABLE.
--- NOTE | 2020-11-08 04:10 | NUR ---
PRN TYLENOL ADMINISTERED FOR RIGHT HIP/SHOULDER PAIN. FRESH WATER PROVIDED. AFTER LEAVING ROOM SATS NOTED TO BE MID 80'S ON VAPOTHERM. PT ABLE TO REPOSITION SELF IN BED AND ELEVATE HEAD OF BED. SpO2 89-91%.
--- NOTE | 2020-11-08 05:41 | NUR ---
SpO2 CONSISTENTLY AROUND 86% ON VAPOTHERM AT 40L. RT IN ROOM TO ASSIST. PT PLACED ON CPAP AT THIS TIME. SATS 98-100%. VS AND I&O COMPLETE. PT DENIES FURTHER NEEDS AT THIS TIME. CALL LIGHT IN REACH.
--- NOTE | 2020-11-08 07:31 | NUR ---
REPORT RECEIVED FROM KAZ CLIFTON. PT LAYING ON BACK WITH CPAP IN PLACE STATS MID 'S.
--- NOTE | 2020-11-08 08:36 | NUR ---
PT TRIED VAPOTHERM FOR AWHILE TO TAKE HIS PILLS AND MAYBE EAT BREAKFAST. THEN DECIDED NOT MUCH OF AN APPETITE AND COULDNT KEEP SATS HIGH WITH THE VAPO THE CPAP. BLEW HIS NOSE SEVERAL TIMES THEN BACK TO CPAP. SATS NOW LOW 90'S. PT STATES HE IS FEELING OK AND DOESNT MIND THE CPAP. AGREED TO A NAP ATT.
--- NOTE | 2020-11-08 11:14 | NUR ---
Pt talking on phone. Cont on cpap. No change in plan for dc.
--- NOTE | 2020-11-08 11:40 | NUR ---
PATIENT IS LYING ON SIDE, SATS ARE 93% WHILE WEARING VAPOTHERM.
--- NOTE | 2020-11-08 13:27 | NUR ---
PT LAYING ON LEFT SIDE WITH VAPOTHERM IN PLACE SATS 90-93%.
--- NOTE | 2020-11-08 14:40 | NUR ---
PATIENT TO EDGE OF BED TO USE URINAL AND BACK TO LAYING ON SIDE. VITALS AND I&O'S CHARTED. FRESH WATER GIVEN. CALL LIGHT IN REACH. NO FURTHER NEEDS AT THIS TIME.
--- NOTE | 2020-11-08 16:14 | NUR ---
PT LAYING ON LEFT SIDE WITH VAPOTHERM SATS 93%
--- NOTE | 2020-11-08 18:24 | NUR ---
PATIENT SITTING UP IN BED WATCHING TV. VITALS AND I&O'S CHARTED. FRESH WATER GIVEN. CALL LIGHT IN REACH. NO FURTHER NEEDS AT THIS TIME.
--- NOTE | 2020-11-08 19:54 | NUR ---
RECEIVED REPORT FROM DAY SHIFT RN. PATIENT IS RESTING IN BED WEARING CPAP. PATIENT GAVE THUMBS UP. CALL LIGHT IN REACH.
--- NOTE | 2020-11-08 22:23 | NUR ---
PATIEN ASSESMENT COMPLETED. VITALS TAKEN AND RECORDED. INTAKE AND OUPUT RECORDED. PATIENT SWITCHED FROM BIPAP TO VAPOTHERM. PATIENT ABLE TO DRINK WATER AND TAKE SCHEDULED PO MEDICATION. PATIENT ASSISTED IN FLUSHING NOSE PATIENT REPORTED A "PLUGGED NOSE". PATIENT DENIES ANY SOB. PATIENT DENIES ANY FURTHER NEEDS. CALL LIGHT IN REACH.
--- NOTE | 2020-11-08 23:46 | NUR ---
PATIENT PLACED BACK IN BIPAP PER PATIENT REQUEST. OXYGEN SATURATIUON 96%. NO FURTHER NEEDS NOTED. CALL LIGHT IN REACH.
--- NOTE | 2020-11-09 01:37 | NUR ---
PATIENTS URINAL EMPTIED. PATIENT ASSISTED IN TAKING BIPAP OFF AND GETTING A DRINK OF WATER. PATIENTS BIPAP PLACED BACK ON. PATIENT DENIES ANY PAIN OR SOB. NO FURTHER NEEDS NOTED. CALL LIGHT IN REACH.
--- NOTE | 2020-11-09 03:38 | NUR ---
PATIENT IS RESTING IN BED WITH EYES CLOSED, RR 21. PATIENT CONTINUES TO WEAR BIPAP. CALL LIGHT IN RECH.
--- NOTE | 2020-11-09 05:58 | NUR ---
PATIENTS BLOOD DRAWN AND SENT TO LAB. VITALS TAKEN AND RECORDED. INTAKE AND OUPUT RECORDED. PATIENT DENIES ANY SOB. PATIENT SWITCHED FROM BIPAP TO VAPOTHERM. PATIENT PROVIDED WITH FRESH ICE WATER. PATIENT DENIES ANY FURTHER NEEDS. CALL LIGHT IN REACH.
--- NOTE | 2020-11-09 07:44 | NUR ---
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 PT ALERT AND ORIENTED.
--- NOTE | 2020-11-09 08:15 | NUR ---
CHRIST Aquino IN ROOM ASSISTED PT UP TO RECLINER WITH CPAP, THEN TRANSFER TO [facility] FOR BREAKFAST.
--- NOTE | 2020-11-09 12:23 | NUR ---
dc remains pending at this time due to worsening of respiratory status this week.
--- NOTE | 2020-11-09 13:02 | NUR ---
PT LUNCH INTO ROOM, HE IS SAT UP. NO FURTHER REQUESTS, HE IS ON VAPOTHERM 40L AND 100% FIO2. OXYGEN SATURATION 90% AT THIS TIME.
--- NOTE | 2020-11-09 14:31 | NUR ---
Patient vitals, I&Os are complete. Call light is in reach.
--- NOTE | 2020-11-09 18:43 | NUR ---
PT HAS BEEN MAINTAINING WELL ON VAPOTHERM 40L AT 100% FIO2, 91% AND GREATER AT REST. HE DESATURATES WHILE STANDING TO USE URINAL. HE SHOULD BE PLACED ON CPAP WITH ACTIVITY IN UP TO RECLINER, ALSO CPAP WHILE SLEEPING. HE IS VERY AWARE OF HIS OXYGEN SATURATIONS HE MONITORS HIS TELE BOX IN HIS ROOM. GOOD APPETITE. VOIDING Q.S. DARK URINE.
--- NOTE | 2020-11-09 20:01 | NUR ---
RECEIVED REPORT FROM DAY SHIFT RN. PATIENT IS JUST BCAK TO BED AFTER USING URINAL. PATIENT DENIES ANY SOB. PATIENT DENIES ANY NEEDS. CALL LIGHT IN REACH.
--- NOTE | 2020-11-09 21:29 | NUR ---
PATIENT ASSESMENT COMPLETED. VITALS TAKEN AND RECORDED. INTAKE AND OUPUT RECORDED. PATIENTS SCHEDULED MEDICATION GIVEN PER ORDER. PATIENT GIVEN PRN TYLENOL FOR KNEE PAIN. PATIENT GIVEN PRN COUGH MEDICATION PER ORDER. PATIENT BRUSHED TEETH. PATIENT REMAINS ON VAPOTHERM. PATIENT WILL CALL WHEN READY FOR BED AND TO BE PUT ON THE CPAP. PATIENT DENIES ANY SOB AT THIS TIME. PATIENT PROVIDED WITH FRESH ICE WATER. PATIENT DENIES ANY FURTHER NEEDS. CALL LIGHT IN REACH.
--- NOTE | 2020-11-09 23:38 | NUR ---
PATIENT UP TO USE URINAL. PATIENTS OXYGEN DECREASED TO 79%. AFTER 30 SECONDS PATIENTS OXYGEN RETURNED TO NORMAL LIMITS. PATIENTS URINAL EMPTIED. FRESH ICE WATER PROVIDED. PATIENT DENIES ANY FURTHER NEEDS. CALL LIGHT IN REACH.
--- NOTE | 2020-11-10 03:17 | NUR ---
PATIENT PROVIDED WITH FRESH ICE WATER. PATIENT TAKEN OFF OF CPAP AND PLACE ON VAPOTHERM. PATIENT PROVIDED WITH COOL RAG TO WASH FACE. PATIENT ASSISTED IN ADJUSTING OXYGEN SO HE COULD BLOW HIS NOISE. PATIENT DENIES ANY SOB. PATIENT DENIES ANY NEEDS. CALL LIGHT IN REACH.
--- NOTE | 2020-11-10 05:07 | NUR ---
VITALS TAKEN AND RECORDED. INTAKE AND OUPUT RECORDED. PATIENT PLACED BACK ON CPAP. PATIENT REPORTS PAIN IN THE BACK OF HIS THROAT AND STATED ITS "DOSHI". OBSEREVE PATIENTS THROAT AND THERE ARE MANY WHITE SPOTS ON THE BACK OF HIS THROAT. PATIENT DENIES ANY FURTHER NEEDS. CALL LIGHT IN REACH.
--- NOTE | 2020-11-10 07:20 | NUR ---
REPORT RECEIVED. PT IN BED WITH CPAP IN PLACE. PT WAS UP SITTING AT EDGE OF BED TO USE URINAL WHEN SPO2 DROPPED TO 69%. CPAP AT 60% FIO2 AT THIS TIME. PT WAS UNABLE TO RECOVER. THIS NURSE TO BEDSIDE. INCREASED SPO2 ON CPAP TO 80% FIO2 UNTIL PT RECOVERED THEN TITRATED TO 75% FIO2. PT NOW IN BED WITH SPO2 AT 90%. CALL LIGHT IN REACH. CPOX MONITOR IN PLACE. WILL CONT TO MONITOR. CALL LIGHT IN REACH.
--- NOTE | 2020-11-10 10:06 | NUR ---
IN THIS MORNING FOR MEDICATION PASS WIHT RT AT BEDSIDE. PT REMOVED FROM CPAP AND PLACED ON 40L HIGH FLOW OXYGEN. SPO2 DOWN FROM 85-89%. ORAL MEDICATIONS ADMISNTERED. DR MCKEON TO BEDSIDED TO ASSESS PT. ONCE DONE PT WAS PLACED BACK ON CPAP. ANGELO CATHETER PLACED D/T BEDREST AND DIFFICULTY USING URINAL. OXYGEN AT 75% FiO2. SPO2 AT 92% AT THIS TIME. ASSESSMENT COMPLETED. RR IS 22. PT REPORTS CHEST DISCOMFORT. TYLENOL PROVIDED. PT IN SEMI-FOWLERS. BREAKFAST HELD. MIGHT HAVE SMALL SNACK LATER. CALL LIGHT IN REACH. PT COMFORTABLE WITH CPAP. NO AIR LEAKS.
--- NOTE | 2020-11-10 11:47 | NUR ---
ROUNDED ON PT. PT REQUESTING BREAK FROM CPAP. HAD PT DO SOME SIDE LYING ON HIS LEFT SIDE AND SWITCHED TO VAPOTHERM 40L 100% Fi02.. WATER PROVIDED. PT TOLERATING WELL SATING AT 90%. CALL LIGHT IN REACH.
--- NOTE | 2020-11-10 13:38 | NUR ---
PT CHANGED TO RIGHT SIDE LYING. VAPOTHERM STILL IN PLACE. SATURATIONS AT 93% ON 40L 100% FiO2. TOLERATING WELL. CALL LIGHT IN REACH.
--- NOTE | 2020-11-10 14:00 | NUR ---
ROUNDED ON PT. CPOX VISIBLE FROM NURSING STATION. SATURATIOSN BETWEEN 90-96% NO TITRATION OF VAPOTHERM DONE. SAME SETTINGS IN PLACE. PT DENEIS SOB. PT ON BEDREST REPOSITIONING SELF FROM RIGHTTO LEFT. CALL LIGHT IN REACH.
--- NOTE | 2020-11-10 15:30 | NUR ---
ROUNDED ON PT. PT STILL ON VAPOTHERM WITH SATURATION BETWEEN 90-96%. PT IS DENYING SOB OR INCREASE IN CHEST PAIN. RR IS 22. PT REPOSITIONED TO LEFT SIDE. BEDREST IN PLACE DIEGO ANGELO. ENCOURAGING ORAL FLUID INTAKE. PT DENIES PAIN. CALL LIGHT IN REACH.
--- NOTE | 2020-11-10 17:16 | NUR ---
BED BATH AND LINEN CHANGE COMPLETED WITH AIR OPERATIONS MANAGER. PT IS ON VAPOTHERM 40L FIO2 AT 100%. SATURAITONS BETWEEN 90-96%. PT TOLERATED WELL. STILL ON BEDREST WITH ANGELO IN PLACE. GOOD URINE OUTPUT. ABLE TO EAT 100% OF LATE LUNCH. CALL LIGHT IN REACH. AND WATER REFRESHED.
--- NOTE | 2020-11-10 18:19 | NUR ---
PT JUST WANTS ICE CREAM AND COOKIE FOR DINNER BECAUSE OF LATE LUNCH. BLOOD SUGAR HIGH D/T LATE LUNCH. 8 UNITS GIVEN. PT LYING ON LEFT SIDE. SATURATIONS STILL BETWEEN 90-96%. RR 20. CALL LIGHT IN REACH.
--- NOTE | 2020-11-10 19:37 | NUR ---
RECEIVED REPORT FROM DAY SHIFT RN. PAGE IS RESTING IN BED ON VAPOTHERM ON HIS RIGHT SIDE. PATIENT DENIES ANY SOB. NO NEEDS NOTED. CALL LIGHT IN REACH.
--- NOTE | 2020-11-10 22:35 | NUR ---
PATIENTS ASSESMENT COMPLETED. PATIENTS VITALS TAKEN AND RECORDED. PATIENTS ANGELO AMPTIED AND ANGELO CARE COMPLETED. INTAKE AND OUTPUT RECORDED. SCHEDULED MEDICATIONS GIVEN PER ORDER. PRN TYLENOL GIVEN PER ORDER. PRN COUGH MEDICATION GIVEN PER ORDER. PATIENT DENIES ANY SOB. PATIENTS ICE WATER REFILLED. PATIENT STATED "I HAVE A LIST IN MY PHONE OF PEOPLE TO CALL IF I ". REASSSURED PATIENT OF PLAN OF CARE. PROVIDED COMFORT. PATIENT APPEARS TO BE ANXIOUS AND DEPRESSES. PATIENT UNABLE TO TALK TO HIS DUE TO THE LOUDNESS OF THE VAPOTHERM. PATIENT ENCOURAGED TO TALK TO ANYWAYS. PATIENT STATED THAT HE WOULD CALL IN THE AM. PATIENT DENIES ANY FURTHER NEEDS. CALL LIGHT IN REACH.
--- NOTE | 2020-11-11 00:10 | NUR ---
PATIENT IS RESTING IN BED WITH EYES CLOSED, RR 22. CPOX READINGS ARE 94% ON 40/100 VAPOTHERM. PATIENTS CALL LIGHT IN REACH.
--- NOTE | 2020-11-11 00:56 | NUR ---
PATIENT IS RESTING IN BED ON HIS RIGHT SIDE WITH EYES CLOSED, RR 21. PATIENTS VAPOTHERM IS ON 40L AND WAS ABLE TO TITRATE HIS OXYGEN TO 95%. PATIENTS CALL LIGHT AND BELONGINGS ARE WITHIN REACH.
--- NOTE | 2020-11-11 05:30 | NUR ---
PATIENTS VITALS TAKEN AND RECORDED. PATIENTS ANGELO EMPTIED. INTAKE AND OUPUT RECORDED. BLOOD DRAWN AND SENT TO LAB. PATIENT DENIES ANY SOB OR PAIN. PATIENT DENIES ANY NEEDS. ICE WATER REFILLED. CALL LIGHT AND BELINGINGS ARE WITHIN REACH.
--- NOTE | 2020-11-11 07:28 | NUR ---
REPORT RECIEVED. CPOX IN PLACE. SPO2 @93% HR 58. VAPOTHERM IN PLACE AT 40L 90% FiO2. CALL LIGHT IN REACH.
--- NOTE | 2020-11-11 09:30 | NUR ---
ASSESSMENT AND MED PASS COMPLETED. PT ATE 100 OF BREAKFAST. LUNGS WITH GOOD BREATH SOUNDS ON RIGHT SIDE AND DIM TIGHT SOUNDS ON LEFT LOBES. PT ON VAPOTHERM 40L 100% Fi02. LYING ON LEFT SIDE. SPO2 AT 93%. CALL LIGHT IN REACH. DENIES NEEDS.
--- NOTE | 2020-11-11 12:00 | NUR ---
PT TRANSITIONED TO VAPOTHERM FOR LUNCH. ATE 50%. SPO2 FROM 90-96%.
--- NOTE | 2020-11-11 14:59 | NUR ---
ROUNDED ON PT. PT SLEEPING ON RIGHT SIDE. RR IS 30 SPO2 AT 92% WITH 40L 100% VAPOTHERM IN PLACE. PT AGREEABLE TO USE CPAP UNTIL DINNER TIME. CHANGED TO CPAP WITH 75% O2. PT REPOSITIONED TO SEMI-FOWLERS PER REQUEST.
--- NOTE | 2020-11-11 15:19 | NUR ---
Patient has been here x 10 days. Patient with a decent appetite on a 60 gram consistent carb diet. Will continue to monitor his intake while here. No nutrition intervention at this time.
--- NOTE | 2020-11-11 15:47 | NUR ---
2 PERSON ASSIST TO PRONING POSITION. PT TOLERATED WELL. VAPOTHERM IN PLACE. SPO2 AT 96%.
--- NOTE | 2020-11-11 15:58 | NUR ---
SPO2 AT 98% VAPOTHERM 40L 100%Fi02 IN PLACE. PT IN PRONING POSITION.
--- NOTE | 2020-11-11 17:30 | NUR ---
PT ATE 100% OF DINNER. SATURATIONS AT 96%. TITRATED VAPOTHERM TO 90% Fi02 WITH 40L. TOLERATING WELL SPO2 AT 94%. PT DENEIS SOB. PT SHOLDERS HURTING AFTER PRONING. TYLENOL ADMISNTERED.
--- NOTE | 2020-11-11 18:46 | NUR ---
Patient vitals, I&Os are completed. Nunez tube was observed to see if patient was sitting on it. Nunez output is flowing properly. Patient has no requests at this time and call light is in reach. Water has been refilled.
--- NOTE | 2020-11-11 19:33 | NUR ---
SHIFT REPORT RECEIVED FROM HAIM MCCURDY. PT RESTING IN BED, NO NEEDS AT THIS TIME. SPO2 96% ON VAPOTHERM 40L, 90%. CALL LIGHT IN REACH.
--- NOTE | 2020-11-11 22:04 | NUR ---
ASSESSMENT, VS AND I&O COMPLETED. GCS 15, A&O X4. LUNGS HAVE CRACKLES IN ALL LOBES. SPO2 93% ON VAPOTHERM 40L/90%. ANGELO WNL, CLEAR YELLOW OUTPUT.ABD SOFT, NONTENDER, BOWEL TONES ACTIVE. IV WNL, CDI, FLUSHED WELL, REINFORCED WITH COBAN. CMS INTACT. EDUCATION PROVIDED ABOUT PRONING AND USE OF I.S., PT VERBALIZES UNDERSTANDING OF EDUCATION. PT ENCOURAGED TO USE CPAP, DECLINES AT THIS TIME. ICE WATER, SNACK AND FOAM FOR NC PAIN ON TOP OF EARS PROVIDED. NO OTHER NEEDS AT THIS TIME. CALL LIGHT IN REACH.
--- NOTE | 2020-11-11 23:05 | NUR ---
PT RESTING ON RIGHT SIDE. SPO2 93% ON VAPOTHERM 40L/90%. CALL LIGHT IN REACH.
--- NOTE | 2020-11-12 01:00 | NUR ---
PT CPOX BATTERY REPLACED. SPO2 95% ON 40L/90%. PT DECLINES TO USE CPAP. PT LAYING ON SIDE. NO OTHER NEEDS. CALL LIGHT IN REACH.
--- NOTE | 2020-11-12 03:00 | NUR ---
PT RESTING IN BED ON RIGHT SIDE. SPO2 92% ON VAPOTHERM 40L/90%. CALL LIGHT IN REACH.
--- NOTE | 2020-11-12 05:49 | NUR ---
VS AND I&O COMPLETED. SPO2 93% ON VAPOTHERM 40L/90%. EDUCATION PROVIDED ABOUT USE OF CPAP, PT STATES "MAYBE IN A FEW MINUTES." NO OTHER NEEDS AT THIS TIME. CALL LIGHT IN REACH.
--- NOTE | 2020-11-12 06:28 | NUR ---
PT HAS BEEN LAYING ON RIGHT SIDE IN BED THIS SHIFT. PT DECLINES TO USE CPAP, EDUCATION PROVIDED. PT HAS BEEN ON VAPOTHERM 40L/90%. VSS, UOS WITH ANGELO WNL. YELLOW, CLEAR URINE. CBG 179, MED PROVIDED. PT TOLERATING DIET WELL. PT HAS A DRY, OCCASSIONAL COUGH. LUNGS HAVE CRACKLES IN ALL LOBES.
--- NOTE | 2020-11-12 11:01 | NUR ---
PATIENT IN BED RESTING AT THIS TIME. VITALS AND I&O'S CHARTED. CALL LIGHT IN REACH. NO FURTHER NEEDS AT THIS TIME.
--- NOTE | 2020-11-12 15:12 | NUR ---
Patient resting in bed on left side, respirations even and non labored. Patient remains on 40L/80% vapotherm, sat level 92%. Patient reports to this RN he is feeling better today, denies sob at rest. Patient consuming plenty of water and is eating a fair amount of his meals. Nunez intact, patent with clear yellow urine. Encouraged patient to prone at this time. Call light within reach.
--- NOTE | 2020-11-12 19:22 | NUR ---
SHIFT REPORT RECEIVED FROM JACINDA MCCURDY. PT RESTING IN BED. SPO2 95% ON VAPOTHERM 40L/65%. CALL LIGHT IN REACH.
--- NOTE | 2020-11-12 20:26 | NUR ---
ASSESSMENT, VS AND I&O COMPLETED. SCHEDULED MEDS PROVIDED. PRN COUGH AND PAIN MEDS PROVIDED. PAIN IN SHOULDER, HIPS AND KNEES RATED 5/10 ACHE. GCS 15, A & O X4. LUNGS HAVE FINE CRACKLES IN UPPER LOBES AND COURSE IN LOWER LOBES. HEART TONES REGULAR. IV WNL, CDI, FLUSHED WELL. ABD SOFT, NONTENDER, BOWEL TONES ACTIVE. PT LAST BM 3 DAYS AGO, PT REQUESTS START OF BOWEL ROUTINE, ORDERED. CMS INTACT. SPO2 95% ON VAPOTHERM 40L/65%. PUDDING AND ICE WATER PROVIDED. NO OTHER NEEDS AT THIS TIME. PRONE, SIDE LAYING, CPAP AND I.S. EDUCATION PROVIDED. PT VERBALIZES UNDERSTANDING, DECLINES CPAP AT THIS TIME. CALL LIGHTIN REACH.
--- NOTE | 2020-11-12 23:00 | NUR ---
PT RESTING IN BED ON RIGHT SIDE. SPOQ 95% ON [id number]/60%. CALL LIGHT IN REACH.
--- NOTE | 2020-11-13 00:38 | NUR ---
PT RESTING IN BED ON RIGHT SIDE. SPO2 94% ON 30L/60%. CALL LIGHT IN REACH.
--- NOTE | 2020-11-13 02:20 | NUR ---
PT RESTING IN BED ON RIGHT SIDE. SPO2 96% ON 30L/60%. CALL LIGHT IN REACH.
--- NOTE | 2020-11-13 04:04 | NUR ---
PT RESTING IN BED. SPO2 94% ON 30L, 60%. CALL LIGHT IN REACH.
--- NOTE | 2020-11-13 05:52 | NUR ---
ASSESSMENT, VS AND I&O COMPLETED. ATTEMPTED FOR A NEW IV X2, UNSUCCESSFUL. LUNGS HAVE FINE CRACKLES IN UPPER LOBES AND ARE COARSE IN LOWER LOBES. SPO2 95% ON VAPOTHERM 30L/60%. IV WNL. PETEY HAS HERMAN URINE, ICE WATER PROVIDED. PT ENCOURAGED TO LAY ON SIDES AND PRONE. NO OTHER NEEDS. CALL LIGHT IN REACH.
--- NOTE | 2020-11-13 07:53 | NUR ---
this rn received report from shanna adrian. pt appears to be resting at this time with cpox in place
--- NOTE | 2020-11-13 09:30 | NUR ---
THIS RN IN PTS ROOM TO GIVE PT HIS MORING MEDS AND DO PTS ASSESSMENT. PTS URINE STILL APPEARS DARK/ HERMAN BUT DECENT OUTPUT. THIS RN PROVIDED PT WITH 2 CUPS OF ICE WATER AND PT UNDERSTANDS THAT HE NEEDS TO DRINK MORE WATER. PT REPORTS HIS CHRONIC ARTHRIC PAIN THIS AM- THIS RN PROVIDED PT WITH TYLENOL FOR PAIN. PTS SATS APPEAR GOOD ESPECIALLY WITH PT LAYING ON HIS BACK- 97% ON 30L AND 60% FIO2. THIS RN DISCUSSED WITH PT WHEN HIS LAST BM WAS- PT REPORTS A COUPLE DAYS AGO- THIS RN PROVIDED PT WITH SENNOKOT- PER ASSESSMENT CHART PT LAST BM WAS 11/09 BUT IN I&O IT WAS 11/05. THIS RN DISCUSSED WITH PT EITHER WAY WE NEED TO GET HIS BOWELS MOVING PROPERLY AGAIN, PT COMPLIANT WITH PLAN OF CARE FROM THIS RN
--- NOTE | 2020-11-13 12:30 | NUR ---
THIS RN IN PTS ROOM TO GET PT UP TO THE CHAIR FOR LUNCH PER REQUEST OF MD AND RT. THIS RN HYPER OXYGENATED PT AT 34L 40% FIO2. PT ABLE TO STAND AND TRANSFER TO CHAIR WELL AND WITHOUT REPORTS OF SHORTNESS OF BREATH. PT STATES THAT IT FEELS GOOD TO SIT UP. PT ONLY DESATED TO 86%- THIS WAS NOT SUSTAINED. PT STARTED TO RECOVED WITHIN A FEW MINUTES OF BEING UP TO CHAIR, THIS RN TURNED PT DOWN TO 30L AND THEN FURTHER TRUNED HIM BACK DOWN TO HIS ORGIANL LEVEL OF 25L AND 40% FIO2. PT STATES THAT HE NEEDS NOTHING ELSE AT THIS TIME
--- NOTE | 2020-11-13 15:10 | NUR ---
THIS RN IN PTS ROOM TO TURN PT UP ON VAPOTHERM TO 30L AND 45% FIO2 PER REQUEST OF RUFINA RT DUE TO PT SATIN GAT 88-90% ON 25L AND 40% FIO2. THIS RN ALSO RESTARTED PTS IV, CHANGED PTS BEDDING AND REMOVED PTS ANGELO PER MDS ORDER. PT TOLERATED WELL AND STILL UP TO CHAIR. THIS RN EDUCATED PT ABOUT ANGELO REMOVEL. THIS RN INSTRUCTED PT TO CALL NURSES STATION WHEN HE NEEDS TO STAND TO VOID IN ORDER TO WATCH HIS SATS. PT STATES UNDERSTANDING AND NEEDS NOTHING FURHTER AT THIS TIME.
--- NOTE | 2020-11-13 18:00 | NUR ---
THIS RN IN PTS ROOM TO GIVE PT HIS INSULIN, NYSTATIN AND TYLENOL PRN. PTS THRUSH APPEARS TO BE IMPROVING DUE TO THIS RN ONLY NOTING SMALL SPOTS OF WHITE INSIDE PTS CHEEKS PT REPORTS HIS PAIN 4/10, WHICH IS CHRONIC.
--- NOTE | 2020-11-13 18:39 | NUR ---
PT AMBULATED BACK TO BED ON 30L 45% FIO2 VAPOTHERM. PT ONLY DESATED TO 87%. PT TOLERATED WELL AND RECOVERED QUICKLY.
--- NOTE | 2020-11-13 19:05 | NUR ---
SHIFT REPORT RECEIVED FROM MO;;Y RN. PT RESTING ON RIGHT SIDE. CPOX 95% ON 30L/45%. CALL LIGHT IN REACH.
--- NOTE | 2020-11-13 21:30 | NUR ---
ASSESSMENT, VS AND I&O COMPLETED. GCS 15, A&O X4. LUNGS CLEAR IN UPPER LOBES AND FINE CRACKLES IN LOWER LOBES. HEART TONES REGULAR. ABD SOFT, NONTENDER, BOWEL TONES ACTIVE. SCHEDULED MEDS PROVIDED. IV WNL, CDI, FLUSHED WELL. CMS INTACT. SPO2 97% ON VAPOTHERM 30L/45%, RT CHANGES PT TO 5L NC AND SPO2 REMAINS 92%. ICE WATER AND SNACK PROVIDED. NO OTHER NEEDS. CALL LIGHT IN REACH.
--- NOTE | 2020-11-14 | NUR ---
PT RESTING IN BED ON RIGHT SIDE. SPO2 92% ON 5L NC. CALL LIGHT IN REACH.
--- NOTE | 2020-11-14 02:14 | NUR ---
PT RESTING IN BED. SPO2 91% ON 5L NC. CALL LIGHT IN REACH.
--- NOTE | 2020-11-14 06:17 | NUR ---
ASSESSMENT, VS AND I&O COMPLETED. PT STATES HE FEELS SLIGHTLY SOB ON NC @ 5L, INCREASED TO 6L WITH IMPROVEMENT IN SOB. LUNGS CLEAR IN UPPER LOBES AND FINE CRACKLES/DIM IN LOWER LOBES. ICE WATER PROVIDED. NO OTHER NEEDS. CALL LIGHT IN REACH.
--- NOTE | 2020-11-14 07:39 | NUR ---
this rn received report from shanna adrian. pt appears to be resting this am with cpox noted to be greater than 94% on 6l.
--- NOTE | 2020-11-14 08:35 | NUR ---
THIS RN IN PTS ROOM TO GIVE PT HIS MORNING MEDS. PT APPEARS VERY DROWSY THIS AM AND STATES THAT HE WILL TAKE HIS MEDS SHORTLY. VITALS DONE AND APPEAR WNL.
--- NOTE | 2020-11-14 10:30 | NUR ---
THIS RN IN PTS ROOM TO GET PTS I&OS. PT STATES THAT HE IS DOING OKAY JUST FEELS LIKE HE IS HAVING A HARD TO "GET OXYGEN" THIS RN ASKED IF PT WOULD LIKE HIS OXYGEN UP 1 MORE L. PT STATED YES, PTS O2 SATS WERE GREATER THAN 90% ON 4L BUT THIS RN TURNED PT UP TO 5L NC PER PT REQUEST. PT STATES THIS FEELS BETTER.
--- NOTE | 2020-11-14 11:35 | NUR ---
PT CALLED TO STATE THAT HE WAS GETTING UP TO THE RESTROOM AT THIS TIME. PT ONLY DESATED TO 88% ON 5L THAT THIS RN NOTED
--- NOTE | 2020-11-14 12:49 | NUR ---
THIS RN IN PTS ROOM TO GIVE PT HIS INSULIN AND METFORMIN. PT STATES THAT HE DOES NOT LIKE TO TAKE METFORMIN, HAS TRIED IN THE PAST BUT HE IS NOT A FAN
--- NOTE | 2020-11-14 14:23 | NUR ---
Call light is in reach. Patient refused lunch because he ate his breakfast a little later in the morning. Vitals, I&Os are done.
--- NOTE | 2020-11-14 19:20 | NUR ---
SHIFT REPORT RECEIVED FROM DEEP MCCURDY. PT RESTING ON BED. SPO2 92% ON 5L NC. CALL LIGHT IN REACH.
--- NOTE | 2020-11-14 22:00 | NUR ---
ASSESSMENT, VS AND I&O COMPLETED. LUNGS CLEAR IN UPPER LOBES, FINE CRACKLES IN LOWER LOBES. GCS 15, A&O X4. ABD SOFT, NONTENDER, BOWEL TONES ACTIVE. CMS INTACT. PRN COUGH AND PAIN MEDS PROVIDED, PAIN 4/10 IN SHOULDER, KNEES AND HIPS. ICE WATER AND SNACKS PROVIDED. NO OTHER NEEDS. CALL LIGHT IN REACH.
--- NOTE | 2020-11-14 23:36 | NUR ---
PT RESTING IN BED. SPO2 95% ON 5L NC. CALL LIGHT IN REACH.
--- NOTE | 2020-11-15 04:18 | NUR ---
PT RESTING, TURNS SELF IN BED, TELE#3 CPOX AT 96%. CALL LIGHT AT BEDSIDE. ON AIRBORNE ISOLATION PRECAUTIONS
--- NOTE | 2020-11-15 04:52 | NUR ---
PT UP TO EDGE OF BED URINATING, DESSATED TO 70% 8L. BACK IN BED, PRONING TO ABD.SATS 90%... SATS WERE 99% PRIOR TO HIM GETTING UP
--- NOTE | 2020-11-15 05:38 | NUR ---
pt has slept this hift. was on 5LNC. satting 94-99%, tele/cpox#[address] weaned down to 4, then 3L at this time, sats 92-94%, turned and repositioning w/o changes. does proning positioning by self. lungs wi crackles, occassional moist productive cough. independent in room. tolerating fluids well. no emesis, voiding QS. no0 c/o pain. SL RFA patent. continues on airborne isolation precautions
--- NOTE | 2020-11-15 07:01 | NUR ---
Pt cpox/tele sats 100% on 3L
--- NOTE | 2020-11-15 07:27 | NUR ---
REPORT RECIEVED FROM IGOR, RN
--- NOTE | 2020-11-15 08:06 | NUR ---
SPOKE WITH PATIENT BY PHONE IN ROOM. PATIENT IS SHORT OF BREATH WITH CONVERSATION. PATIENT STILL PLANS TO RETURN HOME WITH FAMILY AT DISCHARGE. WOULD LIKE TO USE [facility] IF NEEDS OXYGEN OR EQUIPMENT AT DISCHARGE. HAS NO QUESTIONS.
--- NOTE | 2020-11-15 08:17 | NUR ---
MORNING ASSESSMENT DONE, PATIENT IS RESTING IN BED, ON 3L NC FOR 94% O2 SATS. BLOOD GLUCOSE IS 151 AND PATIENT GIVEN 2 UNITS OF SQ INSULIN. MORNING MEDICATIONS GIVEN, LUNGS ARE CLEAR/DIM IN BASES WITH PRODUCTIVE COUGH. PATIENT DENIES OTHER NEEDS AT THIS TIME.
--- NOTE | 2020-11-15 10:12 | NUR ---
DR. BLACK IN TO SEE PATIENT. PATIENT TO HAVE PHYSICAL THERAPY THIS MORNING TO CHECK HIS OXYGEN SATURATION WITH ACTIVITY. PHYSICAL THERAPIST IS AWARE OF PHYSICIAN ORDER. PATIENT ON 3L AT REST.
--- NOTE | 2020-11-15 10:34 | NUR ---
PATIENT SITTING UP IN BED AT THIS TIME. VITALS AND I&O'S CHARTED. PATIENT REFUSED SHOWER/BED BATH AT THIS TIME, WILL ASK LATER. FRESH WATER GIVEN. CALL LIGHT IN REACH. NO FURTHER NEEDS AT THIS TIME.
[2020-11-15] MEDS ORDERED: METFORMIN HCL500 MG PO (11:48)
--- NOTE | 2020-11-15 11:55 | NUR ---
CALL TO RESPIRATORY THERAPY TO LET THEM KNOW THAT PATIENT HAD QUALIFY FOR HOME O2 ORDERS IN.
--- NOTE | 2020-11-15 12:15 | NUR ---
PATIENT GIVEN 2 UNITS SQ INSULIN FOR BG OF 164.
--- NOTE | 2020-11-15 12:27 | NUR ---
DUE TO PRECAUTIONS, I AM UNABLE TO VISIT PT AT THIS TIME. WILL FOLLOW
--- NOTE | 2020-11-15 12:45 | NUR ---
RECEIVED RT QUALIFIER AND RX FOR HOME OXYGEN. CALLED [facility] AND THEY STATE [facility]. CALLED THEM [phone] AND SPOKE TO NOMI. SHE ASKED REFERRAL TO BE FAXED TO [phone]. SHE STATES SHE WILL SEE WHERE THERE IS A NOZZLE WORKER AND LET US KNOW. ASKED HER TO CALL NURSES STATION FOR UPDATE IN CASE I AM NOT IN THE ROOM SO THEY WILL KNOW WHEN TO DISCHARGE. UPDATED CHARGE NURSE AND DIESEL MAINTENANCE TECHNICIAN. FAXED FROM MY OFFICE AND DID NOT GET A CONFIRMATION. FAXED FROM [facility] FA[facility] AND ASKED THEM TO WATCH FOR FAX CONFIRMATION. ASKED THEM TO CHECK WITH PATIENT ON WHO IS TAKING HIM HOME TO UPDATE HIM.
--- NOTE | 2020-11-15 12:55 | NUR ---
PATIENT SITTING UP IN BED TO EAT LUNCH
--- NOTE | 2020-11-15 14:45 | NUR ---
RETURNED FROM LUNCH AND [facility] HAD JUST CALLED THE NURSES STATION. I SPOKE WITH CONNOR MYSELF. SHE STATES THEY GOT PAPERWORK (ALTHOUGH NEITHER OF OUR MACHINES PRINTED CONFIRMATION). SHE STATES THEY HAVE ALL THEY NEED. SHE STATES GRAPPLE SKIDDER OPERATOR SHOULD BE AT HIS PLACE IN [place] IN 1.25 HOURS. STAFF DID NOT CHECK WITH JANAK ON HIS RIDE. WENT TO HIS DOOR, PT STATES HIS IS IN TOWN AND HE WILL CALL HER ON HIS CELL. DISCUSSED THAT WE WILL SEND HIM WITH [facility]ES AND GRAPPLE SKIDDER OPERATOR WILL MEET THEM AT HOME IN 1.25 HOURS.
--- NOTE | 2020-11-15 15:22 | NUR ---
PATIENT GIVEN D/C INSTRUCTIONS, VITALS ARE DONE AND STABLE. PATIENT DRESSED, [facility] PORTABLE OXYGEN TANK READY. RIGHT A/C IV D/C'D WITH CATHETER INTACT. PATIENT HAS CALLED AND SHE WILL BE TO ER ENTRANCE IN THE NEXT 10 MINUTES.
== END 2020-11-15 15:35 | disposition home or self-care (01) | DRG 177 ==
LOC: ED 15:00 → MS 18:52
PROVIDERS: ADMIT Internal Medicine; ATTEND Internal Medicine
PROC: 8E0ZXY6 Isolation (ICD-10-PCS; principal; 2020-11-01)
PROC: 3E0333Z Introduction of Anti-inflammatory into Peripheral Vein, Percutaneous Approach (ICD-10-PCS; 2020-11-01)
PROC: XW033E5 Introduction of Remdesivir Anti-infective into Peripheral Vein, Percutaneous Approach, New Technology Group 5 (ICD-10-PCS; 2020-11-01)
DX: U07.1 COVID-19 (principal); J96.01 Acute respiratory failure with hypoxia; J12.82 Pneumonia due to coronavirus disease 2019; E87.1 Hypo-osmolality and hyponatremia; I25.10 Atherosclerotic heart disease of native coronary artery without angina pectoris; G89.29 Other chronic pain; I10 Essential (primary) hypertension; E11.65 Type 2 diabetes mellitus with hyperglycemia; Z88.0 Allergy status to penicillin; E78.00 Pure hypercholesterolemia, unspecified; E78.5 Hyperlipidemia, unspecified; Z90.49 Acquired absence of other specified parts of digestive tract; Z79.899 Other long term (current) drug therapy; Z79.84 Long term (current) use of oral hypoglycemic drugs; Z79.82 Long term (current) use of aspirin; Z95.5 Presence of coronary angioplasty implant and graft; M19.90 Unspecified osteoarthritis, unspecified site
CPT/HCPCS: 36600; 71045; 71260; 80048; 80053; 82803; 83735; 84484; 85025; 93005; 93010; 94660; 94760; 94761; 94799; 96374; 97161; 99285-25; A9270; J1100; J1650; J1815; J7040; J7050; Q9967